=== PATIENT | female | born 1980 | race Caucasian/White ===

== ENCOUNTER 2016-09-08 16:27 | Emergency (ER) | payer OTHER ==
--- NOTE | ~2016-09-08 | CR63 ---
[facility] A Service of [facility] RADIOLOGY TEXT RESULTS PATIENT: NATHALY BARROW LOCATION: SED : 84 UNIT #: [id number] AGE: [address]: AFIA RIDER SEX: F ORDER DR: [id number] [place] [id number] E MR#: [id number] Acc #: [id number] NAME: NATHALY BARROW : 1980 SEX: F STUDY DATE/TIME: 09/08/2016 17:23 UNIT: SED ROOM: STUDY DESCRIPTION: CR Chest 2 View Attending Physician: Afia Rider Ordering Physician: Afia Rider Primary Care Physician: Primary Care Physician No MEDICAL IMAGING REPORT This report is preliminary unless electronic signature is present. EXAM PA and lateral chest INDICATIONS Cough and body aches for 6 months. FINDINGS Compared to the prior exam from 04/14/16, there is stable elevation of the right hemidiaphragm with some associated bronchovascular crowding. Heart size is within normal limits. No pneumothorax or pleural effusion is identified. No aggressive osseous abnormalities are seen. There is a stable scarring identified within the minor fissure. IMPRESSION Stable elevation of the right hemidiaphragm with some associated bronchovascular crowding. No acute findings identified. Dictated by... Ольга Montiel M.D. THIS IS AN ELECTRONICALLY VERIFIED REPORT Ольга Montiel M.D. at 09/09/2016 10:57 AM AFF/ea TD: 09/09/2016 00:37 JOB #: [id number] MEDICAL IMAGING REPORT Page 1 of 1
[~2016-09-08 16:27] MED LIST: CITRACAL + D CA1 TA1 PO; NOVOLOG100 U/ML SQ
== END 2016-09-08 18:36 | disposition home or self-care (01) ==
LOC: SED 16:27
DX: J20.9 Acute bronchitis, unspecified (principal); J06.9 Acute upper respiratory infection, unspecified; F17.210 Nicotine dependence, cigarettes, uncomplicated; Z91.041 Radiographic dye allergy status; Z79.899 Other long term (current) drug therapy
CPT/HCPCS: 71020; 99283